=== PATIENT | male | born 1935 | race Asian ===

== ENCOUNTER 2024-02-20 08:02 | Outpatient (CLI) | payer OTHER, MEDICAID | END 2024-02-20 08:03 | disposition home or self-care (01) | LOC: CSHCT 08:02 | PROVIDERS: ATTEND Internal Medicine | DX: J47.9 Bronchiectasis, uncomplicated (principal); R91.8 Other nonspecific abnormal finding of lung field; J98.4 Other disorders of lung | CPT/HCPCS: 71250; 94060; 94664; 94729; 94760 ==